=== PATIENT | female | born 1945 | race Caucasian/White ===

== ENCOUNTER 2016-07-06 08:01 | Emergency (ER) | payer BC ==
[~2016-07-06] VITALS: Ht 162.6 cm; Wt 65.8 kg
[2016-07-06 08:01] VITALS: BP 164/77
== END 2016-07-06 08:32 | disposition home or self-care (01) ==
LOC: ER 08:05
DX: J20.9 Acute bronchitis, unspecified (principal); H10.9 Unspecified conjunctivitis
CPT/HCPCS: A4606; Z7610

== ENCOUNTER 2021-12-14 15:05 | Emergency (ER) | payer BC, OTHER ==
[~2021-12-14] VITALS: Ht 162.6 cm; Wt 68.0 kg
[2021-12-14 15:20] VITALS: BP 188/88
[2021-12-14] MEDS ORDERED: NAPR-1009 PO (16:22)
--- NOTE | 2021-12-14 16:35 | NUR ---
Patient discharged to home in stable condition. Written and verbal after care instructions given. Patient verbalizes understanding of instruction.
== END 2021-12-14 16:35 | disposition home or self-care (01) ==
LOC: ER 15:09
DX: S93.401A Sprain of unspecified ligament of right ankle, initial encounter (principal); M48.38 Traumatic spondylopathy, sacral and sacrococcygeal region; X50.1XXA Overexertion from prolonged static or awkward postures, initial encounter; Y93.89 Activity, other specified; Y92.89 Other specified places as the place of occurrence of the external cause; Y99.8 Other external cause status
CPT/HCPCS: 73610-TC